=== PATIENT | female | born 1960 ===

== ENCOUNTER → 2018-08-21 | Outpatient (CLI) | payer OTHER | LOC: BMCIMAGING 08:07 ==

== ENCOUNTER → 2018-09-21 | Outpatient (CLI) | payer OTHER | LOC: EMCIMAGING 08:02 | PROVIDERS: ATTEND Orthopaedic Surgery | DX: M25.561 Pain in right knee (principal); M25.361 Other instability, right knee; M17.11 Unilateral primary osteoarthritis, right knee; M23.41 Loose body in knee, right knee; M23.261 Derangement of other lateral meniscus due to old tear or injury, right knee; R93.6 Abnormal findings on diagnostic imaging of limbs; Z98.890 Other specified postprocedural states ==